=== PATIENT | male | born 1980 | race Caucasian/White ===

== ENCOUNTER 2018-09-29 16:57 | Emergency (ER) | payer OTHER ==
[~2018-09-29] VITALS: Ht 177.8 cm; Wt 86.0 kg
[2018-09-29 17:03] VITALS: Ht 177.8 cm; Wt 86.0 kg
[2018-09-29] MEDS ORDERED: KETOROLAC 15 MG INJ IM STA (17:26)
[2018-09-29] MEDS ORDERED: ONDANSETRON 4 MG INJ IM STA (17:26)
--- NOTE | 2018-09-29 18:16 | ERD ---
ER Documentation Chief Complaint Chief Complaint abd pain on/off x 1 year; vomiting; only taking gabapentin HPI This is a 38-year-old male who is otherwise healthy presents with abdominal pain on and off for 1 year. His pain is associated with intermittent headache, as well as vomiting and dry retching. The patient reports that he has been seen by his primary care doctor as well as a GI doctor in the past, and they have not been able to find a cause for her symptoms. He came at the urging of a friend to the ED today. He just moved from [place], and has not established with PMD yet. He denies any chest pain or shortness of breath. ROS All systems reviewed and are negative except as per history of present illness. Medications Home Meds Active Scripts Pantoprazole* (Protonix*) 40 Mg Tablet., 40 MG PO DAILY, #20 TAB Prov:GUILLERMINA OLIVER MD 09/29/18 Allergies Allergies: Coded Allergies: No Known Allergy (Unverified , 09/29/18) PMhx/Soc Medical and Surgical Hx: pt denies Medical Hx, pt denies Surgical Hx Hx Alcohol Use: No Hx Substance Use: Yes Hx Tobacco Use: Yes Smoking Status: Light tobacco smoker Physical Exam Vitals Vital Signs Date Temp Pulse Resp B/P (MAP) Pulse Ox O2 O2 Flow FiO2 Time Delivery Rate 09/29/18 97.1 100 20 144/97 96 17:03 (113) Physical Exam Const: No acute distress Head: Atraumatic Eyes: Normal Conjunctiva ENT: Normal External Ears, Nose and Mouth. Neck: Full range of motion. No meningismus. Resp: Clear to auscultation bilaterally Cardio: Regular rate and rhythm, no murmurs Abd: Soft, non tender, non distended. Normal bowel sounds Skin: No petechiae or rashes Back: No midline or flank tenderness Ext: No cyanosis, or edema Neur: Awake and alert Psych: Normal Mood and Affect Result Diagram: 09/29/18 1747 09/29/187 Results 24 hrs Laboratory Tests Test 09/29/18 17:47 White Blood Count 8.7 10^3/ul Red Blood Count 4.98 10^6/ul Hemoglobin 13.9 g/dl Hematocrit 41.4 % Mean Corpuscular Volume 83.1 fl Mean Corpuscular Hemoglobin 27.9 pg Mean Corpuscular Hemoglobin Concent 33.6 g/dl Red Cell Distribution Width 12.0 % Platelet Count 189 10^3/UL Mean Platelet Volume 9.9 fl Immature Granulocytes % 0.200 % Neutrophils % 74.7 % Lymphocytes % 14.3 % Monocytes % 10.1 % Eosinophils % 0.6 % Basophils % 0.1 % Nucleated Red Blood Cells % 0.0 /100WBC Immature Granulocytes # 0.020 10^3/ul Neutrophils # 6.5 10^3/ul Lymphocytes # 1.2 10^3/ul Monocytes # 0.9 10^3/ul Eosinophils # 0.1 10^3/ul Basophils # 0.0 10^3/ul Nucleated Red Blood Cells # 0.0 10^3/ul Sodium Level 139 mmol/L Potassium Level 4.2 mmol/L Chloride Level 100 mmol/L Carbon Dioxide Level 26 mmol/L Anion Gap 13 Blood Urea Nitrogen 15 mg/dl Creatinine 1.19 mg/dl Est Glomerular Filtrat Rate mL/min > 60 mL/min Glucose Level 104 mg/dl Calcium Level 10.1 mg/dl Total Bilirubin 0.8 mg/dl Direct Bilirubin 0.00 mg/dl Indirect Bilirubin 0.8 mg/dl Aspartate Amino Transf (AST/SGOT) 35 IU/L Alanine Aminotransferase (ALT/SGPT) 49 IU/L Alkaline Phosphatase 98 IU/L Total Protein 8.4 g/dl Albumin 4.6 g/dl Globulin 3.80 g/dl Albumin/Globulin Ratio 1.21 Lipase 31 U/L Current Medications Medications Dose Sig/Puneet Start Time Status Last (Trade) Ordered Route PRN Stop Time Admin Dose Reason Admin Ondansetron 4 mg ONCE STAT 09/29/18 DC 09/29/18 HCl (Zofran IM 17:26 09/29/18 17:55 Inj) 17:28 Ketorolac 15 mg ONCE STAT 09/29/18 DC 09/29/18 Tromethamine IM 17:26 09/29/18 17:55 (Toradol) 17:28 Procedures/MDM CBC: no e/o of systemic infection or severe anemia CMP: no e/o severe acidosis, alkalosis, renal failure, diabetic ketoacidosis, liver disease Lipase: no e/o pancreatitis PT/INR: normal coagulation Urine: no e/o acute infection or hematuria EKG: Rate/Rhythm: Normal Sinus Rhythm QRS, ST, T-waves: No changes consistent w/ acute ischemia Impression: No evidence of ischemia or arrhythmia This is a 38-year-old male who presents for evaluation of abdominal pain. This pain has been on and off for the last year, he has no peritoneal signs on abdomi nal exam, and is otherwise hemodynamically stable. His lab work-up was overall unremarkable, and CT abdomen pelvis was performed which negative, I discussed findings with patient, he will follow-up with PMD I recommend a trial of Protonix, at discharge she was in no distress. Departure Diagnosis: Primary Impression: Abdominal pain Abdominal location: unspecified location Qualified Codes: R10.9 - Unspecified abdominal pain Condition: Stable GUILLERMINA OLIVER MD September 29, 2018 18:16
[2018-09-29] MEDS ORDERED: PANT40TA3 PO (18:43)
[2018-09-29 20:02] VITALS: BP 120/64; PULSE 102; RESP 18
== END 2018-09-29 20:03 | disposition home or self-care (01) ==
LOC: FTE 16:57
DX: R10.10 Upper abdominal pain, unspecified (principal); F17.210 Nicotine dependence, cigarettes, uncomplicated; R11.10 Vomiting, unspecified
CPT/HCPCS: 36415; 74176; 80053; 83690; 85025; 93005; 96372; J1885; J2405; Z7502